=== PATIENT | male | born 1965 | race Caucasian/White ===

== ENCOUNTER 2018-06-22 14:31 | Emergency (ER) | payer OTHER ==
[2018-06-22] MEDS ORDERED: Erythromycin Base 0.5% Ophth Oint 3.5 gm Tube ONE (14:56)
[2018-06-22] MEDS ORDERED: AMOXicillin 250 MG CAP ONE (14:56)
== END 2018-06-22 15:10 | disposition home or self-care (01) ==
LOC: MADERS 14:31
DX: H10.11 Acute atopic conjunctivitis, right eye (principal); L03.213 Periorbital cellulitis
CPT/HCPCS: 99282